=== PATIENT | male | born 1970 | race Caucasian/White ===

== ENCOUNTER 2016-09-28 10:56 | Emergency (ER) | payer MEDICAID ==
[~2016-09-28] VITALS: Ht 180.3 cm; Wt 106.6 kg
[2016-09-28] MEDS ORDERED: NALTREXONE HCL50 MG PO (11:19)
[2016-09-28 11:25] VITALS: BP 128/87
[2016-09-28] MEDS ORDERED: Ketorolac 60mg Inj IM ONE (12:00)
[2016-09-28 12:06] LABS: APPEARANCE,URINE CLEAR; KETONES,URINE NEGATIVE (NEGATIVE); LEUKOCYTE ESTERASE ,URINE NEGATIVE (NEGATIVE); NITRITE,URINE NEGATIVE (NEGATIVE); PH,URINE 6.5 (4.5-8.0); PROTEIN,URINE NEGATIVE (NEGATIVE); UROBILINOGEN,URINE NORMAL MG/DL (0.0-1.0)
[2016-09-28 12:27] LABS: BACTERIA,URINE FEW /HPF; SQUAMOUS EPITHELIAL CELL,UR OCCASIONAL /LPF (NONE/OCC); WBC,URINE 0-2 /HPF (0 - 0)
--- NOTE | 2016-09-28 12:29 | Emergency Room Report ---
History of Present Illness General Chief Complaint: Pain Source: Patient Present Illness HPI 45-year-old male presents emergency department complaining of unilateral right- sided flank pain intermittent x2 weeks denies fevers or chills reports history of sarcoidosis denies hematuria or dysuria reports mild frequency. he reports pain is 8/10 in severity localized primarily to the right flank. he states pain is exacerbated upon getting up out of his chair or walking. No trauma or fall. Denies abdominal pain. Denies numbness tingling or loss of sensation or gross motor movements of the extremities, incontinence of bowel or bladder. Denies CP, Palpitations, LOC, AMS, dizziness, Changes in Vision, Sensation, paresthesias, or a sudden severe headache. Allergies: Coded Allergies: No Known Allergies (Unverified , 09/28/16) Patient History Past Medical History: see triage record Past Surgical History: none Pertinent Family History: none Immunizations: UTD Reviewed Nursing Documentation: PMH: Agreed, PSxH: Agreed Nursing Documentation-PMH Past Medical History: No History, Except For Hx Cardiac Problems: No - sarcoidosis Review of Systems All Other Systems: negative except mentioned in HPI Physical Exam Vital Signs Date Time Temp Pulse Resp B/P Pulse Ox O2 Delivery O2 Flow Rate FiO2 09/28/16 11:16 97.7 88 20 128/87 96 Room Air Sp02 EP Interpretation: reviewed, normal General Appearance: no apparent distress, alert, GCS 15, non-toxic Head: normocephalic, atraumatic Eyes: bilateral eye PERRL, bilateral eye normal inspection ENT: hearing grossly normal, normal pharynx, no angioedema, normal voice Neck: full range of motion, supple/symm/no masses Respiratory: chest non-tender, lungs clear, normal breath sounds, speaking full sentences Cardiovascular #1: regular rate, rhythm, no edema Gastrointestinal: normal bowel sounds, non tender, soft, no guarding, no rebound Rectal: deferred Genitourinary: normal inspection, CVA tenderness (R) Musculoskeletal: back normal, gait/station normal, normal range of motion, no calf tenderness, tender - right paraspinal TTP, no midline TTP, no obvious deformities Neurologic: alert, oriented x3, responsive, motor strength/tone normal, sensory intact, speech normal Psychiatric: judgement/insight normal, memory normal, mood/affect normal, no suicidal/homicidal ideation Skin: normal color, no rash, warm/dry, well hydrated Lymphatic: no adenopathy Medical Decision Making PA Attestation Dr. Castillo is my supervising Physician whom patient management has been discussed with. Diagnostic Impression: Primary Impression: Musculoskeletal pain Additional Impressions: Musculoskeletal strain Opacity of lung on imaging study History of sarcoidosis ER Course 45-year-old male presents emergency department complaining of unilateral right- sided flank pain intermittent x2 weeks denies fevers or chills reports history of sarcoidosis denies hematuria or dysuria reports mild frequency. She reports pain is 8/10 in severity localized primarily to the right flank. She states pain is exacerbated upon getting up out of his chair or walking. No trauma or fall. Denies abdominal pain. Ddx considered but are not limited to Diverticulitis, acute appy, diarrhea,UC, PUD, GE, pancreatitis, gallstone, kidney stone, pyelonephritis, UTI, obstruction. Vital signs: are WNL, pt. is afebrile H&PE are most consistent with possible stone, will also check kidney function. ORDERS: -BMP: unremarkable , pt. has normal kidney function - UA: RBC's and occult blood, few bacteria and few squamous, most likely contamination. - CT abdomen and pelvis no contrast: no hydro or stones, normal kidney appearance, incidental finding of left fatty inguinal hernia, multiple opacities of the bases of the lungs bilaterally per official radiology report. ED INTERVENTIONS: -- 60mg Toradol IM DISCHARGE: At this time pt. is stable for d/c to home. Will provide printed patient care instructions, and any necessary prescriptions. Care plan and follow up instructions have been discussed with the patient prior to discharge. Labs Test 09/28/16 11:26 09/28/16 13:10 Urine Color Pale yellow Urine Appearance Clear Urine pH 6.5 (4.5-8.0) Urine Specific [place] 1.005 (1.005-1.035) Urine Protein Negative (NEGATIVE) Urine Glucose (UA) Negative (NEGATIVE) Urine Ketones Negative (NEGATIVE) Urine Occult Blood 1+ (NEGATIVE) Urine Nitrite Negative (NEGATIVE) Urine Bilirubin Negative (NEGATIVE) Urine Urobilinogen Normal MG/DL (0.0-1.0) Urine Leukocyte Esterase Negative (NEGATIVE) Urine RBC 2-4 /HPF (0 - 0) Urine WBC 0-2 /HPF (0 - 0) Urine Squamous Epithelial Cells Occasional /LPF Urine Bacteria Few /HPF (NONE) Sodium Level 134 mEQ/L (135-145) Potassium Level 4.2 mEQ/L (3.4-4.9) Chloride Level 95 mEQ/L (98-107) Carbon Dioxide Level 23 mEQ/L (20-30) Anion Gap 16 (5-15) Blood Urea Nitrogen 8 mg/dL (7-23) Creatinine 0.9 mg/dL (0.7-1.2) Estimat Glomerular Filtration Rate > 60 mL/min (>60) Glucose Level 103 mg/dL (74-106) Calcium Level 9.6 mg/dL (8.6-10.2) Last Vital Signs Date Time Temp Pulse Resp B/P Pulse Ox O2 Delivery O2 Flow Rate FiO2 09/28/16 11:25 97.7 88 20 128/87 96 Room Air Disposition: HOME, SELF-CARE Condition: Stable Scripts Cyclobenzaprine Hcl* (FLEXERIL*) 10 Mg Tablet 10 MG ORAL THREE TIMES A DAY for 7 Days, #21 TAB Prov: Melia Meza 09/28/16 Ibuprofen* (MOTRIN*) 600 Mg Tablet 600 MG ORAL THREE TIMES A DAY, #30 TAB 0 Refills Prov: Melia Meza 09/28/16 Referrals: HAILEE AGUIRRE MD (PCP) Patient Instructions: Back Pain, Adult, [id number], Muscle Strain Additional Instructions: Take medications as directed. Follow up with PCP in 3-[address] CHEST to examine lung opacities that were found incidentally on CT imaging. Return sooner to ED if new symptoms occur, or current symptoms become worse. - Please note that this Emergency Department Report was dictated using [employer] advisor technology software, occasionally this can lead to erroneous entry secondary to interpretation by the dictation equipment. Melia Meza Sep 28, 2016 12:29
[2016-09-28 13:44] LABS: ANION GAP 16 (5-15); CALCIUM 9.6 mg/dL (8.6-10.2); CARBON DIOXIDE 23 mEQ/L (20-30); CHLORIDE 95 mEQ/L (98-107); CREATININE 0.9 mg/dL (0.7-1.2); GLOMERULAR FILTRATION RATE > 60 mL/min (>60); HEMOLYSIS 14; POTASSIUM 4.2 mEQ/L (3.4-4.9); SODIUM 134 mEQ/L (135-145)
[2016-09-28] MEDS ORDERED: IBUPROFEN600 MG ORAL (14:24)
[2016-09-28] MEDS ORDERED: CYCLOBENZAPRINE10 MG ORAL (14:24)
[2016-09-28 14:45] VITALS: BP 128/87
--- NOTE | 2016-09-28 15:03 | Diagnostic Imaging Report ---
Indication: Abdominal pain Technique: Spiral acquisitions obtained through the abdomen and pelvis. No oral contrast utilized, per emergency room physician request No IV contrast utilized, per referring physician request.. Multiplanar reconstructions were generated. Total dose length product 1047 mGycm. CTDIvol(s) 18 mGy Comparison: None Findings: The appendix is normal. No evidence of diverticulosis or diverticulitis. Small bowel distention. There is a tiny fat-containing umbilical hernia. No free or loculated intraperitoneal air or fluid is evident. Distal esophagus, stomach, duodenum are unremarkable. The lack of IV contrast limits assessment of solid organs. The liver is diffusely hypoattenuating, consistent with diffuse fatty change. Small areas of sparing are seen adjacent to the gallbladder fossa the gallbladder, bile ducts, pancreas, spleen, adrenals, kidneys are unremarkable. There is a small accessory splenule. No pelvic mass or adenopathy. No retroperitoneal or mesenteric mass or adenopathy. There is a small fat-containing left inguinal hernia The lung bases demonstrate multiple small irregular opacities, most incompletely included the most prominent is in the lateral right lower lobe, measuring 9 mm diameter. Reticulonodular opacities are seen in the posteromedial left lower lobe. The bones are unremarkable. Impression: No acute process Bilateral basilar pulmonary parenchymal small irregular opacities. Nonspecific, most likely areas of postinflammatory change, but acute inflammation or neoplastic etiology of any these cannot be ruled out. There is also an area of reticulonodular opacities in the posteromedial left lower lobe, which could indicate acute or chronic inflammatory process. Consider further evaluation with chest CT as clinically indicated Marked fatty infiltration of the liver Incidental findings of small fat-containing left inguinal and umbilical hernias The CT scanner at [facility] is accredited by the [employer] and the scans are performed using protocols designed to limit radiation exposure to as low as reasonably achievable to attain images of sufficient resolution adequate for diagnostic evaluation.
== END 2016-09-28 14:45 | disposition home or self-care (01) ==
LOC: EMR 12:20
DX: M79.1 Myalgia (principal); K40.90 Unilateral inguinal hernia, without obstruction or gangrene, not specified as recurrent; R91.8 Other nonspecific abnormal finding of lung field
CPT/HCPCS: 36415; 74176; 80048; 81003; 96372; 99284